=== PATIENT | female | born 1950 | race Caucasian/White ===

== ENCOUNTER 2018-10-06 08:03 | Day surgery (SDC) | payer MEDICARE ==
[2018-10-06] MEDS ORDERED: Propofol 10 mg/ml Inj (20 ML) ONE (10:49)
[2018-10-06] MEDS ORDERED: Midazolam 2 MG/2 ML VIAL ONE (10:50)
[2018-10-06] MEDS ORDERED: HYDROmorphone 0.5 mg/0.5 ml ISec IVP PRN (11:16)
[2018-10-06] MEDS ORDERED: Lactated Ringer's 1,000 ML IV SCH (11:30)
[2018-10-06] MEDS ORDERED: ePHEDrine 50 mg/ml Inj ONE (11:44)
[2018-10-06] MEDS ORDERED: Sevoflurane - Inhalation Anesthetic Liq (250 ml) ONE (11:45)
[2018-10-06 11:54] VITALS: RESP 18
[2018-10-06 12:21] VITALS: PULSE 67; TEMP 97.6
[2018-10-06 13:11] VITALS: BP 129/63; O2SAT 96
--- NOTE | 2018-10-06 21:59 | OP ---
PROCEDURE DATE: 10/06/2018 PREOPERATIVE DIAGNOSES: Cervical stenosis, postmenopausal bleeding. POSTOPERATIVE DIAGNOSES: Cervical stenosis, postmenopausal bleeding. PROCEDURE PERFORMED: Hysteroscopy, dilatation and curettage. SURGEON: Rishabh Hoskins MD ANESTHESIA: Mask with Propofol. ESTIMATED BLOOD LOSS: Minimal. FINDINGS: Endocervical stenosis with clear fluid coming out after dilatation, endometrial lining basically normal. DESCRIPTION OF THE PROCEDURE: An informed consent was taken with a small brake form operator. All questions were answered for the patient and her , consent was signed, and the patient was brought into the operating room. General mask anesthesia was given and the patient then was prepped and draped in usual sterile fashion. Examination under anesthesia revealed the patient had a grade 1 to 2 uterine prolapse with a grade 1 cystocele. Examination of the cervix revealed the cervix to have an opening that was normal, but the patient had endocervical stenosis. With the patient placed in the dorsal lithotomy position, a weighted speculum was inserted into the vaginal vault. The anterior lip of the cervix was then visualized and grasped with a single-tooth tenaculum. Using the smallest dilator, the endocervical canal was slowly and cautiously opened. It was open to accommodate insertion of a #21-Bulgarian resectoscope. Once the cavity was open, a small gush of clear fluid came from the endocervical canal. A 21-Bulgarian resectoscope was then inserted into the cavity of the uterus and visualization of the cavity revealed no abnormalities. The lining was found to be atrophic. No polyps or fibroid projections into the cavity noted. Both ostia were visualized without difficulty. A curettage of the endometrial cavity was taken. Minimal to no specimen was noted. Same was performed with the endocervical canal. No tissue was noted. Visualization of the endocervical canal on removal of the . Hysteroscope revealed no abnormalities. The patient was awakened, sent to the recovery room in stable condition. Rishabh Hoskins MD
== END 2018-10-06 13:30 | disposition home or self-care (01) ==
LOC: SDS 08:03
PROVIDERS: ATTEND Obstetrics & Gynecology Gynecology
DX: N95.0 Postmenopausal bleeding (principal); N88.2 Stricture and stenosis of cervix uteri
CPT/HCPCS: 58558; 88305; J1170; J2001; J2250; J2405; J2704; J3010; J7120